=== PATIENT | male | born 1955 | race Caucasian/White ===

== ENCOUNTER 2020-07-31 11:13 | Emergency (ER) | payer BC, OTHER ==
[2020-07-31] MEDS ORDERED: Albuterol 200 PUFF (6.7GM INHALER) ONE (12:47)
[2020-07-31] MEDS ORDERED: Dexamethasone 10 MG/ML VIAL ONE (12:47)
[2020-07-31 13:33] LABS: #Lymphocytes 0.6 thou/uL (1.20-3.40); #Monocytes 0.6 thou/uL (0.11-0.59); #Neutrophils 6.9 thou/uL (1.40-6.50); %Basophils 0.4 % (0.0-1.0); %Eosinophils 0.2 % (0.0-10.0); %Lymphocytes 7.9 % (21.0-51.0); %Neutrophils 84.6 % (42.0-75.0); Hemoglobin 16.5 g/dL (14.0-18.0); Mean Corpuscular HGB CONC 34.1 g/dL (32.0-36.0); Mean Corpuscular Hemoglobin 30.6 pg (27.0-31.0); Mean Corpuscular Volume 89.8 fL (78.0-98.0); Mean Platelet Volume 8.8 fL (7.4-10.4); Platelet Count 130 thou/uL (130-400); RBC Distribution Width 11.6 % (11.5-14.5); Red Blood Cell (RBC) Count 5.39 mill/uL (4.70-6.10); White Blood Cell (WBC) Count 8.2 thou/uL (4.8-10.8)
--- NOTE | 2020-07-31 13:45 | RAD ---
XR Chest 1 View Portable HISTORY: Cough COMPARISON: None FINDINGS: The heart size is normal. The lungs are well expanded without focal areas of consolidation, pneumothorax or pleural effusions. There is suggestion of mild hazy peripheral opacities. Possibility of viral pneumonia should be consi dered
[2020-07-31 13:48] LABS: ALT (SGPT) 35 U/L (8-55); AST (SGOT) 32 U/L (5-34); Albumin 3.8 g/dL (3.4-4.8); Alkaline Phosphatase 46 U/L (40-110); Anion Gap 19 mmol/L (10-20); BUN (Urea Nitrogen) 36 mg/dL (8.4-25.7); Bilirubin, Total 0.6 mg/dL (0.2-1.2); Calc. Creatinine Clearance 0 mL/min (70-130); Calcium 8.7 mg/dL (7.8-10.44); Carbon Dioxide 21 mmol/L (23-31); Chloride 96 mmol/L (98-107); Globulin 3.3 g/dL (2.4-3.5); Glucose 314 mg/dL (80-115); Potassium 3.8 mmol/L (3.5-5.1); Protein, Total 7.1 g/dL (5.8-8.1); Sodium 132 mmol/L (136-145)
[2020-07-31 21:33] LABS: SARS-CoV-2 MS2 Positive; SARS-CoV-2 N Gene Positive; SARS-CoV-2 S Gene Positive; SARS-CoV-2 by NAA DETECTED (NotDetected); SARS-CoV-2 orf1ab Positive
== END 2020-07-31 14:29 | disposition home or self-care (01) ==
LOC: ERS 11:13
DX: U07.1 COVID-19 (principal); J12.89 Other viral pneumonia; Z79.82 Long term (current) use of aspirin
CPT/HCPCS: 71045; 80053; 85025; 87635; 87804; 94664; 96374; J1100; U0003

== ENCOUNTER 2020-09-02 01:19 | Inpatient (IN) | payer BC ==
[2020-09-02 04:35] VITALS: BMI 25.8
[2020-09-02] MEDS ORDERED: Acetaminophen 325 MG TAB PO PRN (04:43)
--- NOTE | 2020-09-02 04:47 | PDOC.HHP ---
Hospitalist HPI - History of Present Illness Shortness of breath History of Present Illness: This is a 65-year-old male patient with a history of atrial flutter status post ablation, diabetes mellitus who was transferred from [facility] after having been diagnosed with pulmonary embolism post Covid infection and lack of available beds. 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 He was diagnosed with Covid on 07/31/2020 after he flew in from [place]. He was admitted at [facility] and discharged on 08/08/2020. He seemed to be doing generally well until about 5-6 days ago when he noted swelling of his right ankle which quickly progressed to involve most of his right leg. He presented to urgent care where the scan noted he had a DVT. He was started on Xarelto. Apparently has been on Xarelto for the past 5 days without missing a dose. Yesterday however he started noticing worsening shortness of breath as a result he went back to [facility] and [place] where CT scan of his chest picked up pulmonary embolism. He also notes having fevers and sweatiness for the past couple of days. At [place] ED was saturating about 84% on room air with improvement to above 95 on 2 L nasal cannula. Blood pressure was 148/63, temperature 89.9, respiratory rate 18 and pulse 98. At [facility] his Xarelto was discontinued and he was started on therapeutic Lovenox. His other labs showed generally unremarkable CBC, BMP showed a mild hyponatremia of 133 and bicarb of 18. Glucose was 516, ferritin 533 LDH 519 CRP 5.26. Chest x-ray was concerning for possible acute infiltrates bilaterally in the lower segments. Unclear whether these are chronic lung changes. For his elevated glucose he was given insulin. He was not in DKA. He was also covered on vancomycin and Levaquin for possible hospital-acquired pneumonia Due to lack of beds he was transferred here for further management. Hospitalist ROS - Review of Systems Constitutional: reports: fever, sweats, malaise. denies: weakness Respiratory: reports: cough, shortness of breath, hemoptysis, SOB with excertion , pleuritic pain Cardiovascular: reports: chest pain, palpitations, orthopnea, paroxysmal noc. dyspnea Gastrointestinal: denies: nausea, vomiting, abdominal pain Genitourinary: denies: dysuria, incontinence Neurological: denies: weakness, numbness, incoordination, change in speech All other systems reviewed; all pertinent +/- noted in HPI/Subj - Medication Medications: Medications: Can refer to initial history Allergies: No known drug allergies. Hospitalist History - Past Medical History Endocrine: reports: Diabetes Other Medical History: Atrial flutter - Past Surgical History Past Surgical History: reports: Total Knee Replacement Other Surgical History: Atrial flutter ablation - Social History Smoking Status: Former smoker Alcohol: reports: None Drugs: reports: none Living Situation: Alone Activity level: independent ambulation - Exam General Appearance: awake alert Eye: PERRL, anicteric sclera ENT: normocephalic atraumatic Neck: supple, symmetric, no JVD Respiratory - other findings: Air entry adequate bilaterally, no rhonchi or wheeze Gastrointestinal: soft, non-tender, non-distended, normal bowel sounds Extremities: no cyanosis, no clubbing, 1+ LE edema (Right leg) Neurological: cranial nerve grossly intact, no focal deficits Psychiatric: normal affect, normal behavior, A&O x 3 Hospitalist Results - Labs Result Diagrams: 09/03/20 05:59 09/03/20 05:59 Hospitalist H&P A/P - Plan Plan: 65-year-old male patient with a history of atrial flutter status post ablation, diabetes mellitus who was diagnosed with Covid on 07/31/2020 is transferred from [place] today with right lower limb DVT with pulmonary embolism apparently having failed Xarelto therapy. Acute hypoxic respiratory failure In the setting of pulmonary embolism/previous Covid infection/chronic lung changes and possible pneumonia Oxygen therapy as needed DVT/PE Patient is back on Xarelto now Lovenox This in the setting of prior Covid infection We will check echocardiogram in a.m. Pulmonology consult for plan for long-term anticoagulation. Possible pneumonia Received Vanco and Levaquin cefepime This is unlikely pneumonia however will continue antibiotics for now on Levaquin Would appreciate pulmonology input. Hyponatremia Mild Monitor BMP COVID-19 infection Initial diagnosis 07/31/2020 Patient stool positive likely residual or any Consider ID consult on treatment decision VT prophylaxistherapeutic Lovenox CODE STATUSfull code
[2020-09-02] MEDS ORDERED: Dextrose 50% Abboject 50 ML SYRINGE SLOW IVP PRN (05:18)
[2020-09-02] MEDS ORDERED: Dextrose 5% in Water 1,000 ML IV PRN (05:18)
[2020-09-02] MEDS: HumaLOG 300 UNITS/3 ML VIAL SC PRN ×4 (06:07→20:26)
[2020-09-02] MEDS ORDERED: Enoxaparin Sodium 100 MG/ML SYRINGE SC SCH (07:00)
[2020-09-02] MEDS: Enoxaparin Sodium 120 MG/0.8 ML SYRINGE SC SCH ×2 (08:32→20:25)
--- NOTE | 2020-09-02 10:30 | CON ---
DATE OF CONSULTATION: 09/02/2020 CONSULTING PHYSICIAN: Dr. Rosenberg from the [facility]ist [facility]. REASON FOR CONSULTATION: Pulmonary embolism. HISTORY OF PRESENT ILLNESS: This is a 65-year-old male, who was diagnosed with COVID on July 31. He was briefly hospitalized. He went home on steroids, antibiotics, but did not require oxygen at home. Five days ago, he was seen at the emergency room, diagnosed with a right hand DVT. He was placed on Xarelto. Last night, he began having fevers and came back to the ER. He had a CT of the chest performed showing bilateral pulmonary emboli. Of note, he did not have a CT performed during his earlier evaluation for the DVT. It should be noted, he was taking Xarelto as an outpatient. He was on the starter pack, which is 15 mg b.i.d. I believe. He says he did not start this till Monday. 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 PAST MEDICAL HISTORY: 1. COVID-19 pneumonia. 2. Diabetes mellitus. PAST SURGICAL HISTORY: Knee replacement and atrial flutter ablation. SOCIAL HISTORY: Quit smoking about 20 years ago. Does not consume alcohol. Does not use illicit drugs. REVIEW OF SYSTEMS: Remarkable for shortness of breath, right leg swelling. Otherwise, negative. MEDICATIONS: Prior to admission; 1. Xarelto. 2. Janumet. 3. Losartan/hydrochlorothiazide. 4. Atorvastatin. PHYSICAL EXAMINATION: VITAL SIGNS: Temperature 98.5, pulse 85, respirations 20, O2 saturation 100% on 3 L, and blood pressure 136/88. GENERAL: He is awake and alert, in no acute distress. HEENT: Unremarkable. NEC: No adenopathy or JVD. LUNGS: He has inspiratory crackles in both bases. CARDIAC: S1 and S2. Regular without audible murmur. ABDOMEN: Soft and nontender to palpation. EXTREMITIES: No clubbing, cyanosis, or edema. IMAGING DATA: CT was reviewed, shows bilateral pulmonary emboli, worse in the left upper lobe and left lower lobe. He also has post-COVID changes, most notably in both lower lobes. LABORATORY DATA: White blood cell count 8.8, hematocrit 44, and platelet count 152. D-dimer 3.6. Sodium 133, potassium 4.3, chloride 100, CO2 of 18, BUN 17, creatinine 1.2, and glucose 447. ASSESSMENT: 1. Deep vein thrombosis. 2. Pulmonary embolism. 3. Post-COVID pneumonia. 4. Acute hypoxic respiratory failure. DISCUSSION: The patient has a post COVID, DVT, and pulmonary embolism. I would not necessarily view these as separate events as he probably had pulmonary embolism on Monday. Therefore, I would not necessarily view this as treatment failure. RECOMMENDATIONS: He is currently on enoxaparin. I would probably do that for 3 days and then switch him to Eliquis 10 mg b.i.d. for 7 days, then 5 mg b.i.d. thereafter and do this for 6 months. The fever may be from pulmonary infarction or could be a secondary infection after COVID. I would treat him with 7 days of Levaquin and then stop that. Thank you for the referral. Job ID: [id number]
[2020-09-02] MEDS ORDERED: HYDROcodone/Acetaminophen 5/325 mg Tablet PO PRN (17:37)
--- NOTE | 2020-09-02 17:40 | PDOC.HOSPP ---
- Subjective Encounter Date: 09/02/20 Encounter Time: 17:38 Subjective: Mr. Atkinson was seen today in follow-up of PE and recent COVID infection. He notes continued pain in his chest when breathing. He also notes some dyspnea. - Objective Vital Signs & Weight: Vital Signs (12 hours) Temp Pulse Resp BP Pulse Ox 09/02/20 16:00 74 130/91 H 09/02/20 12:06 97.6 F 76 20 143/82 H 100 09/02/20 12:00 20 96 09/02/20 09:08 98.5 F 75 20 136/88 100 09/02/20 08:43 98.5 F 75 20 Weight Weight 235 lb 7.259 oz I&O: 09/01/20 09/02/20 09/03/20 06:59 06:59 06:59 Intake Total 360 Output Total 1500 Balance -1140 Additional Labs: Accuchecks 09/02/20 09/02/20 09/02/20 16:26 11:25 05:49 POC Glucose 426 H 420 H 447 H Hospitalist ROS - Medication Medications: Active Medications Generic Name Dose Route Start Last Admin Trade Name Freq PRN Reason Stop Dose Admin Acetaminophen 650 mg 09/02/20 04:43 09/02/20 10:13 Acetaminophen 325 Mg Tab PO 650 mg Q4H PRN Administration Headache/Fever/Mild Pain (1-3) Enoxaparin Sodium 110 mg 09/02/20 09:00 09/02/20 08:32 Enoxaparin Sodium 120 Mg/0.8 Ml Syringe SC 110 mg 0900,2100 KELSEY Administration Levofloxacin 750 mg/ Device 150 mls @ 100 mls/hr 09/02/20 07:00 09/02/20 08:32 IVPB 150 mls Q24HR KELSEY Administration Insulin Human Lispro 0 units 09/02/20 05:18 09/02/20 16:39 Humalog 300 Units/3 Ml Vial SC 6 unit .MILD SLIDING SCALE PRN Administration Mild Correctional Scale Sodium Chloride 10 ml 09/02/20 09:00 09/02/20 08:33 Flush - Normal Saline 10 Ml Syringe IVF 10 ml Q12HR KELSEY Administration - Exam Eye: PERRL, anicteric sclera ENT: normocephalic atraumatic Heart: RRR, no murmur, no gallops, no rubs, normal peripheral pulses Respiratory: no wheezes, no ronchi, rales (at the right base) Gastrointestinal: soft, non-tender, non-distended, normal bowel sounds, no palpable masses, no hepatomegaly Extremities: 1+ LE edema (about the right ankle and chronic venous stasis changes) Hosp A/P (1) Pulmonary embolus Code(s): I26.99 - OTHER PULMONARY EMBOLISM WITHOUT ACUTE COR PULMONALE Status: Acute (2) DVT (deep venous thrombosis) Code(s): I82.409 - ACUTE EMBOLISM AND THOMBOS UNSP DEEP VN UNSP LOWER EXTREMITY Status: Acute (3) COPD (chronic obstructive pulmonary disease) Status: Chronic Qualifiers: COPD type: chronic bronchitis Chronic bronchitis type: mucopurulent Qualified Code(s): J41.1 - Mucopurulent chronic bronchitis (4) Hypertension Code(s): I10 - ESSENTIAL (PRIMARY) HYPERTENSION Status: Chronic (5) Type 2 diabetes mellitus Status: Chronic Qualifiers: Diabetes mellitus complication status: without complication - Plan * Pulmonary Embolus- Pulmonary Consult appreciated- Will continue with Lovenox for the next 3 days, then transition to Eliquis * DVT- as above * COPD- stable- have Duonebs available * Recent Covid pneumonia- will continue isolation until 21 days post test/symptoms * DM- will hold Janumet ( given the recent CTA) and will start on Lantus in the interim and continue SSI * HTN- re-start Lisinopril * Hyperlipidemia- re-start Lipitor
[2020-09-02] MEDS ORDERED: Albuterol 200 PUFF (6.7GM INHALER) INH PRN (17:52)
[2020-09-02] MEDS: HYDROcodone/Acetaminophen 10/325 mg Tablet PO PRN (18:33)
[2020-09-02] MEDS: Insulin Glargine 20 UNITS in Pre-Filled Syringe 1 EACH SC SCH (20:25)
[2020-09-02] MEDS: Morphine 2 MG/ML VIAL SLOW IVP PRN (20:31)
[2020-09-02] MEDS ORDERED: traZODone HCl 50 MG TAB PO SCH (22:00)
[2020-09-03] MEDS: HumaLOG 300 UNITS/3 ML VIAL SC PRN ×4 (06:04→20:13)
[2020-09-03 06:30] LABS: #Eosinphils 0.2 thou/uL (0.0-0.7); #Monocytes 0.6 thou/uL (0.11-0.59); %Basophils 0.4 % (0.0-1.0); %Eosinophils 3.1 % (0.0-10.0); %Lymphocytes 25.4 % (21.0-51.0); %Monocytes 8.2 % (0.0-10.0); Mean Corpuscular HGB CONC 31.5 g/dL (32.0-36.0); Mean Corpuscular Hemoglobin 29.1 pg (27.0-31.0); Mean Corpuscular Volume 92.3 fL (78.0-98.0); Mean Platelet Volume 7.4 fL (7.4-10.4); Platelet Count 174 thou/uL (130-400); RBC Distribution Width 12.9 % (11.5-14.5); White Blood Cell (WBC) Count 7.9 thou/uL (4.8-10.8)
[2020-09-03 06:41] LABS: Anion Gap 13 mmol/L (10-20); BUN (Urea Nitrogen) 14 mg/dL (8.4-25.7); Calc. Creatinine Clearance 144 mL/min (70-130); Calcium 8.5 mg/dL (7.8-10.44); Carbon Dioxide 25 mmol/L (23-31); Chloride 99 mmol/L (98-107); Glucose 293 mg/dL (80-115); Sodium 133 mmol/L (136-145)
[2020-09-03] MEDS: Enoxaparin Sodium 120 MG/0.8 ML SYRINGE SC SCH ×2 (07:43→20:11)
--- NOTE | 2020-09-03 14:33 | PDOC.HOSPP ---
- Subjective Encounter Date: 09/03/20 Encounter Time: 08:30 Subjective: Patient seen for follow-up regarding acute hypoxic respiratory failure. Denies chest pain. Did not sleep well. - Objective Vital Signs & Weight: Vital Signs (12 hours) Temp Pulse Resp BP Pulse Ox 09/03/20 13:36 68 20 106/71 97 09/03/20 13:13 97.7 F 68 20 106/71 97 09/03/20 08:32 98.4 F 69 20 125/82 100 09/03/20 06:14 97.5 F L 67 18 116/79 99 Weight Weight 235 lb 7.259 oz I&O: 09/02/20 09/03/20 09/04/20 06:59 06:59 06:59 Intake Total 360 Output Total 1500 Balance -1140 Result Diagrams: 09/03/20 05:59 09/03/20 05:59 Additional Labs: Accuchecks 09/03/20 09/03/20 09/02/20 12:18 05:40 20:06 POC Glucose 283 H 291 H 407 H 09/02/20 16:26 POC Glucose 426 H I reviewed patient's labs and [facility] Hospitalist ROS - Review of Systems Respiratory: reports: cough, SOB with excertion, sputum. denies: dry, shortness of breath, hemoptysis, pleuritic pain, wheezing Cardiovascular: denies: chest pain, palpitations, orthopnea, paroxysmal noc. dyspnea, edema, light headedness - Medication Medications: Active Medications Generic Name Dose Route Start Last Admin Trade Name Freq PRN Reason Stop Dose Admin Acetaminophen 650 mg 09/02/20 04:43 09/02/20 10:13 Acetaminophen 325 Mg Tab PO 650 mg Q4H PRN Administration Headache/Fever/Mild Pain (1-3) Hydrocodone Bitart/Acetaminophen 1 tab 09/02/20 17:37 09/02/20 18:33 Hydrocodone/Acetaminophen 10/325 Mg Tablet PO 1 tab Q4H PRN Administration Severe Pain (7-10) Enoxaparin Sodium 110 mg 09/02/20 09:00 09/03/20 07:43 Enoxaparin Sodium 120 Mg/0.8 Ml Syringe SC 110 mg 0900,2100 KELSEY Administration HCTZ/Losartan Potassium 1 tab 09/03/20 09:00 09/03/20 07:43 Losartan/Hydrochlorothiazide 50 Mg/12.5 Mg Tablet PO 1 tab DAILY KELSEY Administration Levofloxacin 750 mg/ Device 150 mls @ 100 mls/hr 09/02/20 07:00 09/03/20 06:06 IVPB 150 mls Q24HR KELSEY Administration Insulin Glargine 20 units/ 0.2 mls @ 0 mls/hr 09/02/20 21:00 09/02/20 20:25 Miscellaneous Medication SC 0.2 mls HS KELSEY Administration Insulin Human Lispro 0 units 09/02/20 05:18 09/03/20 12:31 Humalog 300 Units/3 Ml Vial SC 4 unit .MILD SLIDING SCALE PRN Administration Mild Correctional Scale Morphine Sulfate 2 mg 09/02/20 17:38 09/02/20 20:31 Morphine 2 Mg/Ml Vial SLOW IVP 2 mg Q4H PRN Administration Severe Pain (7-10) Sodium Chloride 10 ml 09/02/20 09:00 09/03/20 07:43 Flush - Normal Saline 10 Ml Syringe IVF 10 ml Q12HR KELSEY Administration - Exam General Appearance: awake alert Eye: anicteric sclera ENT: normocephalic atraumatic Neck: supple Heart: RRR Respiratory: CTAB Gastrointestinal: soft, non-tender Skin: no rashes Psychiatric: normal affect, normal behavior Hosp A/P - Plan Hosp A/P (1) acute hypoxic respiratory failure Status: Acute (2) Pulmonary embolus Code(s): I26.99 - OTHER PULMONARY EMBOLISM WITHOUT ACUTE COR PULMONALE Status: Acute (3) DVT (deep venous thrombosis) Code(s): I82.409 - ACUTE EMBOLISM AND THOMBOS UNSP DEEP VN UNSP LOWER EXTREMITY Status: Acute (4) COPD (chronic obstructive pulmonary disease) Status: Chronic Qualifiers: COPD type: chronic bronchitis Chronic bronchitis type: mucopurulent Qualified Code(s): J41.1 - Mucopurulent chronic bronchitis (5) Hypertension Code(s): I10 - ESSENTIAL (PRIMARY) HYPERTENSION Status: Chronic (6) Type 2 diabetes mellitus Status: Chronic Qualifiers: Diabetes mellitus complication status: without complication - Plan * Continue Lovenox for the next 2 days, then transition to Eliquis. * DVT- as above * COPD- stable * Recent Covid pneumonia- will continue isolation until 21 days post test/symp toms * DM-continue Accu-Cheks and insulin sliding scale * HTN- re-start Lisinopril * Hyperlipidemia- re-start Lipitor * As needed Ambien for insomnia
[2020-09-03] MEDS: Morphine 2 MG/ML VIAL SLOW IVP PRN (16:00)
[2020-09-03] MEDS: Atorvastatin Calcium 10 MG TAB PO SCH (20:12)
[2020-09-03] MEDS: Insulin Glargine 20 UNITS in Pre-Filled Syringe 1 EACH SC SCH (20:12)
[2020-09-03] MEDS: Zolpidem Tartrate 5 MG TAB PO PRN (20:12)
[2020-09-04] MEDS: HumaLOG 300 UNITS/3 ML VIAL SC PRN ×4 (06:13→20:03)
[2020-09-04] MEDS: Enoxaparin Sodium 120 MG/0.8 ML SYRINGE SC SCH ×2 (08:04→20:03)
[2020-09-04] MEDS: Morphine 2 MG/ML VIAL SLOW IVP PRN (14:51)
--- NOTE | 2020-09-04 16:42 | PDOC.HOSPP ---
- Subjective Encounter Date: 09/04/20 Encounter Time: 09:30 Subjective: Patient seen for follow-up regarding acute hypoxic respiratory failure. Reports occasional pleuritic chest pain. - Objective Vital Signs & Weight: Vital Signs (12 hours) Temp Pulse Resp BP Pulse Ox 09/04/20 15:15 98.0 F 70 20 106/64 97 09/04/20 08:04 68 18 128/72 97 09/04/20 08:00 98.0 F 67 18 107/75 97 Weight Weight 235 lb 7.259 oz I&O: 09/03/20 09/04/20 09/05/20 06:59 06:59 06:59 Intake Total 360 Output Total 1500 Balance -1140 Result Diagrams: 09/03/20 05:59 09/03/20 05:59 Additional Labs: Accuchecks 09/04/20 09/04/20 09/04/20 16:33 11:22 05:27 POC Glucose 237 H 177 H 229 H 09/03/20 20:06 POC Glucose 364 H Labs and MAR reviewed by al Hospitalist ROS - Review of Systems Cardiovascular: reports: chest pain. denies: palpitations, orthopnea, paroxysmal noc. dyspnea, edema, light headedness Gastrointestinal: denies: nausea, vomiting, abdominal pain, diarrhea, constipation, melena, hematochezia - Medication Medications: Active Medications Generic Name Dose Route Start Last Admin Trade Name Freq PRN Reason Stop Dose Admin Acetaminophen 650 mg 09/02/20 04:43 09/02/20 10:13 Acetaminophen 325 Mg Tab PO 650 mg Q4H PRN Administration Headache/Fever/Mild Pain (1-3) Hydrocodone Bitart/Acetaminophen 1 tab 09/02/20 17:37 09/02/20 18:33 Hydrocodone/Acetaminophen 10/325 Mg Tablet PO 1 tab Q4H PRN Administration Severe Pain (7-10) Atorvastatin Calcium 10 mg 09/03/20 21:00 09/03/20 20:12 Atorvastatin Calcium 10 Mg Tab PO 10 mg HS KELSEY Administration Enoxaparin Sodium 110 mg 09/02/20 09:00 09/04/20 08:04 Enoxaparin Sodium 120 Mg/0.8 Ml Syringe SC 110 mg 0900,2100 KELSEY Administration HCTZ/Losartan Potassium 1 tab 09/03/20 09:00 09/04/20 08:04 Losartan/Hydrochlorothiazide 50 Mg/12.5 Mg Tablet PO 1 tab DAILY KELSEY Administration Levofloxacin 750 mg/ Device 150 mls @ 100 mls/hr 09/02/20 07:00 09/04/20 06:12 IVPB 150 mls Q24HR KELSEY Administration Insulin Glargine 20 units/ 0.2 mls @ 0 mls/hr 09/02/20 21:00 09/03/20 20:12 Miscellaneous Medication SC 0.2 mls HS KELSEY Administration Insulin Human Lispro 0 units 09/02/20 05:18 09/04/20 11:35 Humalog 300 Units/3 Ml Vial SC 2 unit .MILD SLIDING SCALE PRN Administration Mild Correctional Scale Morphine Sulfate 2 mg 09/02/20 17:38 09/04/20 14:51 Morphine 2 Mg/Ml Vial SLOW IVP 2 mg Q4H PRN Administration Severe Pain (7-10) Sodium Chloride 10 ml 09/02/20 09:00 09/04/20 08:05 Flush - Normal Saline 10 Ml Syringe IVF 10 ml Q12HR KELSEY Administration Zolpidem Tartrate 5 mg 09/03/20 09:51 09/03/20 20:12 Zolpidem Tartrate 5 Mg Tab PO 5 mg HSPRN PRN Administration Insomnia - Exam General Appearance: awake alert Eye: anicteric sclera ENT: no oropharyngeal lesions Neck: supple Heart: RRR Respiratory: CTAB Gastrointestinal: soft, non-tender Skin: no rashes Psychiatric: normal affect, normal behavior Hosp A/P - Plan Hosp A/P (1) acute hypoxic respiratory failure Status: Acute (2) Pulmonary embolus Code(s): I26.99 - OTHER PULMONARY EMBOLISM WITHOUT ACUTE COR PULMONALE Status: Acute (3) DVT (deep venous thrombosis) Code(s): I82.409 - ACUTE EMBOLISM AND THOMBOS UNSP DEEP VN UNSP LOWER EXTREMITY Status: Acute (4) COPD (chronic obstructive pulmonary disease) Status: Chronic Qualifiers: COPD type: chronic bronchitis Chronic bronchitis type: mucopurulent Qualified Code(s): J41.1 - Mucopurulent chronic bronchitis (5) Hypertension Code(s): I10 - ESSENTIAL (PRIMARY) HYPERTENSION Status: Chronic (6) Type 2 diabetes mellitus Status: Chronic Qualifiers: Diabetes mellitus complication status: without complication - Plan * Continue Lovenox for the next day, then transition to Eliquis. * DVT- as above * COPD- stable * Recent Covid pneumonia * DM-continue Accu-Cheks and insulin sliding scale * HTN-controlled and stable * Hyperlipidemia-continue Lipitor * Continue Ambien for insomnia
[2020-09-04] MEDS: Atorvastatin Calcium 10 MG TAB PO SCH (20:02)
[2020-09-04] MEDS: Zolpidem Tartrate 5 MG TAB PO PRN (20:02)
[2020-09-04] MEDS: Insulin Glargine 20 UNITS in Pre-Filled Syringe 1 EACH SC SCH (20:03)
[2020-09-05] MEDS: HumaLOG 300 UNITS/3 ML VIAL SC PRN ×4 (06:47→20:48)
[2020-09-05] MEDS: Enoxaparin Sodium 120 MG/0.8 ML SYRINGE SC SCH (08:49)
[2020-09-05] MEDS: Morphine 2 MG/ML VIAL SLOW IVP PRN (14:31)
--- NOTE | 2020-09-05 18:06 | PDOC.HOSPP ---
- Subjective Encounter Date: 09/05/20 Encounter Time: 18:05 Subjective: Seen for follow-up for hypoxic respiratory failure. Complains of cough - Objective Vital Signs & Weight: Vital Signs (12 hours) Temp Pulse Resp BP 09/05/20 16:00 98.4 F 09/05/20 08:00 98.4 F 74 20 108/67 Weight Weight 235 lb 7.259 oz I&O: 09/04/20 09/05/20 09/06/20 06:59 06:59 06:59 Output Total 800 Balance -800 Result Diagrams: 09/03/20 05:59 09/03/20 05:59 Additional Labs: Accuchecks 09/05/20 09/05/20 09/05/20 16:29 11:47 04:25 POC Glucose 347 H 207 H 225 H 09/04/20 19:18 POC Glucose 251 H I reviewed patient's labs and MAR Hospitalist ROS - Review of Systems Respiratory: reports: cough, dry Gastrointestinal: denies: nausea, vomiting, abdominal pain, diarrhea, constipa tion, melena, hematochezia Genitourinary: denies: dysuria, frequency, incontinence, hematuria, retention - Medication Medications: Active Medications Generic Name Dose Route Start Last Admin Trade Name Freq PRN Reason Stop Dose Admin Acetaminophen 650 mg 09/02/20 04:43 09/02/20 10:13 Acetaminophen 325 Mg Tab PO 650 mg Q4H PRN Administration Headache/Fever/Mild Pain (1-3) Hydrocodone Bitart/Acetaminophen 1 tab 09/02/20 17:37 09/02/20 18:33 Hydrocodone/Acetaminophen 10/325 Mg Tablet PO 1 tab Q4H PRN Administration Severe Pain (7-10) Atorvastatin Calcium 10 mg 09/03/20 21:00 09/04/20 20:02 Atorvastatin Calcium 10 Mg Tab PO 10 mg HS KELSEY Administration Enoxaparin Sodium 110 mg 09/02/20 09:00 09/05/20 08:49 Enoxaparin Sodium 120 Mg/0.8 Ml Syringe SC 110 mg 0900,2100 KELSEY Administration HCTZ/Losartan Potassium 1 tab 09/03/20 09:00 09/05/20 08:49 Losartan/Hydrochlorothiazide 50 Mg/12.5 Mg Tablet PO 1 tab DAILY KELSEY Administration Levofloxacin 750 mg/ Device 150 mls @ 100 mls/hr 09/02/20 07:00 09/05/20 06:48 IVPB 150 mls Q24HR KELSEY Administration Insulin Glargine 20 units/ 0.2 mls @ 0 mls/hr 09/02/20 21:00 09/04/20 20:03 Miscellaneous Medication SC 0.2 mls HS KELSEY Administration Insulin Human Lispro 0 units 09/02/20 05:18 09/05/20 17:13 Humalog 300 Units/3 Ml Vial SC 5 unit .MILD SLIDING SCALE PRN Administration Mild Correctional Scale Morphine Sulfate 2 mg 09/02/20 17:38 09/05/20 14:31 Morphine 2 Mg/Ml Vial SLOW IVP 2 mg Q4H PRN Administration Severe Pain (7-10) Sodium Chloride 10 ml 09/02/20 09:00 09/05/20 08:50 Flush - Normal Saline 10 Ml Syringe IVF 10 ml Q12HR KELSEY Administration Zolpidem Tartrate 5 mg 09/03/20 09:51 09/04/20 20:02 Zolpidem Tartrate 5 Mg Tab PO 5 mg HSPRN PRN Administration Insomnia - Exam General Appearance: awake alert Eye: anicteric sclera ENT: moist mucosa Neck: supple Heart: RRR Respiratory: CTAB Gastrointestinal: soft, non-tender Skin: no rashes Psychiatric: normal affect, normal behavior Hosp A/P - Plan Hosp A/P (1) acute hypoxic respiratory failure Status: Acute (2) Pulmonary embolus Code(s): I26.99 - OTHER PULMONARY EMBOLISM WITHOUT ACUTE COR PULMONALE Status: Acute (3) DVT (deep venous thrombosis) Code(s): I82.409 - ACUTE EMBOLISM AND THOMBOS UNSP DEEP VN UNSP LOWER EXTREMITY Status: Acute (4) COPD (chronic obstructive pulmonary disease) Status: Chronic Qualifiers: COPD type: chronic bronchitis Chronic bronchitis type: mucopurulent Qualified Code(s): J41.1 - Mucopurulent chronic bronchitis (5) Hypertension Code(s): I10 - ESSENTIAL (PRIMARY) HYPERTENSION Status: Chronic (6) Type 2 diabetes mellitus Status: Chronic Qualifiers: Diabetes mellitus complication status: without complication - Plan * Transition to Eliquis * DVT- as above * COPD- stable * DM-blood sugars are high, start glyburide and resume Janumet. * HTN-controlled and stable * Hyperlipidemia-continue Lipitor * Patient is on Ambien for insomnia
[2020-09-05] MEDS: Alogliptin 25 MG TAB PO SCH (20:31)
[2020-09-05] MEDS: Zolpidem Tartrate 5 MG TAB PO PRN (20:31)
[2020-09-05] MEDS: Apixaban 5 MG TAB PO SCH (20:32)
[2020-09-05] MEDS: metFORMIN 500 MG TAB PO SCH (20:33)
[2020-09-05] MEDS: Insulin Glargine 20 UNITS in Pre-Filled Syringe 1 EACH SC SCH (20:33)
[2020-09-05] MEDS: Atorvastatin Calcium 10 MG TAB PO SCH (20:36)
[2020-09-06] MEDS: HumaLOG 300 UNITS/3 ML VIAL SC PRN (05:11)
[2020-09-06] MEDS: metFORMIN 500 MG TAB PO SCH ×2 (08:33→20:49)
[2020-09-06] MEDS: Apixaban 5 MG TAB PO SCH ×2 (08:34→20:49)
[2020-09-06] MEDS: Alogliptin 25 MG TAB PO SCH ×2 (08:34→20:49)
[2020-09-06] MEDS: glyBURIDE 5 MG TAB PO SCH (08:34)
[2020-09-06 10:09] LABS: #Eosinphils 0.2 thou/uL (0.0-0.7); #Lymphocytes 1.8 thou/uL (1.20-3.40); #Monocytes 0.8 thou/uL (0.11-0.59); #Neutrophils 4.2 thou/uL (1.40-6.50); %Basophils 0.1 % (0.0-1.0); %Eosinophils 2.4 % (0.0-10.0); %Lymphocytes 25.5 % (21.0-51.0); %Monocytes 11.3 % (0.0-10.0); %Neutrophils 60.6 % (42.0-75.0); Hemoglobin 14.7 g/dL (14.0-18.0); Mean Corpuscular HGB CONC 33.3 g/dL (32.0-36.0); Mean Corpuscular Hemoglobin 30.6 pg (27.0-31.0); Mean Corpuscular Volume 92.1 fL (78.0-98.0); Mean Platelet Volume 7.8 fL (7.4-10.4); Platelet Count 178 thou/uL (130-400); RBC Distribution Width 12.9 % (11.5-14.5); Red Blood Cell (RBC) Count 4.78 mill/uL (4.70-6.10); White Blood Cell (WBC) Count 6.9 thou/uL (4.8-10.8)
[2020-09-06] MEDS: traMADol HCl 50 MG TAB PO PRN ×2 (10:17→17:35)
[2020-09-06 10:37] LABS: Anion Gap 15 mmol/L (10-20); BUN (Urea Nitrogen) 16 mg/dL (8.4-25.7); Calc. Creatinine Clearance 120 mL/min (70-130); Calcium 8.8 mg/dL (7.8-10.44); Carbon Dioxide 24 mmol/L (23-31); Chloride 97 mmol/L (98-107); Glucose 317 mg/dL (80-115); Potassium 4.3 mmol/L (3.5-5.1); Sodium 132 mmol/L (136-145)
--- NOTE | 2020-09-06 12:36 | PDOC.DS.DS ---
Provider - Provider Date of Admission: 09/02/20 01:19 Date of Discharge: 09/06/20 Admitting Provider: Sanchez Rosenberg MD Consultations: Pulmonary (Dr. Kate) Primary Care Physician: Unknown Course - Hospital Course Hospital Course: Discharge diagnosis: 1. Acute hypoxic respiratory failure 2. Bilateral pulmonary emboli 3. Hyponatremia 4. Bilateral groundglass infiltrative changes in the lung bases on imaging Hospital course: Patient is a pleasant 65-year-old gentleman who was admitted to the hospital on September 02, 2020 for bilateral pulmonary embolism in the context of recent COVID-19 infection. He will also received antibiotics for groundglass infiltrates bilaterally. He was seen by pulmonary and critical care medicine service. He is requiring supplemental oxygen on the day of discharge, arrangements are being made for home oxygen. His blood sugars were high during this hospitalization. He was started on glyburide. He has been advised to check his blood sugars 3 times a day and shows readings to his primary care provider. He also had difficulty sleeping and he received prescription for 10 doses of Ambien. I also sent prescription for 15 doses of tramadol for pain management. Many thanks for allowing me to participate in your patient's care. Please feel free to contact me with any questions or concerns. Discharge destination: Home Total amount of time spent coordinating this discharge: 20 minutes - Labs Lab Results: 09/06/20 09:36 09/06/20 09:36 Abnormal Lab Results - Last 48 hrs 09/06/20 09:36: Sodium 132 L, Chloride 97 L 09/06/20 09:36: Monocytes % 11.3 H, Monocytes # 0.8 H - Physical Exam Vitals: Vital Signs (12 hours) Pulse Resp BP Pulse Ox 09/06/20 08:43 96 09/06/20 08:00 73 20 105/74 93 L Weight Weight 235 lb 7.259 oz Physical Exam: The patient was seen and examined on the day of discharge. Patient denies chest pain or shortness of breath. Vital signs are stable. S1 and S2 are heard. Lungs are clear to auscultation bilaterally. Plan - Discharge Medications Prescriptions: Albuterol Sulfate [Proventil Hfa] 2 puff INH [id number] PRN #1 aer PRN Reason: Sob &/Or Wheezing Zolpidem Tartrate [Ambien] 5 mg PO HSPRN PRN #10 tab PRN Reason: Insomnia glyBURIDE [Diabeta] 5 mg PO QAM-WM #30 tab Levofloxacin [Levaquin] 750 mg PO DAILY #5 tab traMADol HCl [Ultram] 50 mg PO Q6H PRN #15 tab PRN Reason: Pain Home Medications: Medication Instructions Recorded Confirmed Type sitaGLIPtin Phos/metFORMIN HCl 1 tablet PO BID 09/04/14 09/02/20 History [Janumet] Atorvastatin Calcium 10 mg PO DAILY 08/02/20 09/02/20 History Losartan/Hydrochlorothiazide 1 each PO DAILY 08/02/20 09/02/20 History [Losartan-Hctz 50-12.5 mg Tab] Albuterol Sulfate [Proventil Hfa] 2 puff INH [id number] PRN #1 aer 09/06/20 Rx Levofloxacin [Levaquin] 750 mg PO DAILY #5 tab 09/06/20 Rx Zolpidem Tartrate [Ambien] 5 mg PO HSPRN PRN #10 tab 09/06/20 Rx glyBURIDE [Diabeta] 5 mg PO QAM-WM #30 tab 09/06/20 Rx traMADol HCl [Ultram] 50 mg PO Q6H PRN #15 tab 09/06/20 Rx Allergies: No Known Allergies Allergy (Verified 08/02/20 20:48) - Discharge Instructions Discharge Instructions:: Check your blood sugars 3 times a day and shows readings to your primary care provider. - Follow up Plan Referrals: Unknown,Unknown [Primary Care Provider] - 3 Days Estevan Mclain MD [Active] - 3 Days Disposition: HOME Quality - Care Measures CORE MEASURES:: N/A
[2020-09-06] MEDS: HYDROcodone/Acetaminophen 10/325 mg Tablet PO PRN (14:49)
--- NOTE | 2020-09-06 16:11 | PDOC.HOSPP ---
- Subjective Encounter Date: 09/06/20 Encounter Time: 16:10 Subjective: Pt seen for followup re: acute resp failure with hypoxia. Feels better. - Objective Vital Signs & Weight: Vital Signs (12 hours) Pulse Resp BP Pulse Ox 09/06/20 12:00 97 09/06/20 08:43 96 09/06/20 08:00 73 20 105/74 93 L Weight Weight 235 lb 7.259 oz I&O: 09/05/20 09/06/20 09/07/20 06:59 06:59 06:59 Output Total 800 Balance -800 Result Diagrams: 09/06/20 09:36 09/06/20 09:36 Additional Labs: Accuchecks 09/06/20 09/06/20 09/05/20 11:36 04:31 19:32 POC Glucose 152 H 244 H 300 H 09/05/20 16:29 POC Glucose 347 H Reviewed labd and MARs. Hospitalist ROS - Review of Systems Respiratory: reports: cough, pleuritic pain Cardiovascular: denies: chest pain, palpitations, orthopnea, paroxysmal noc. dyspnea, edema, light headedness, other Gastrointestinal: denies: nausea, vomiting, abdominal pain, diarrhea, constipation, melena, hematochezia - Medication Medications: Active Medications Generic Name Dose Route Start Last Admin Trade Name Freq PRN Reason Stop Dose Admin Acetaminophen 650 mg 09/02/20 04:43 09/02/20 10:13 Acetaminophen 325 Mg Tab PO 650 mg Q4H PRN Administration Headache/Fever/Mild Pain (1-3) Hydrocodone Bitart/Acetaminophen 1 tab 09/02/20 17:37 09/06/20 14:49 Hydrocodone/Acetaminophen 10/325 Mg Tablet PO 1 tab Q4H PRN Administration Severe Pain (7-10) Alogliptin Benzoate 12.5 mg 09/05/20 21:00 09/06/20 08:34 Alogliptin 25 Mg Tab PO 12.5 mg BID KELSEY Administration Apixaban 10 mg 09/05/20 21:00 09/06/20 08:34 Apixaban 5 Mg Tab PO 10 mg BID KELSEY Administration Atorvastatin Calcium 10 mg 09/03/20 21:00 09/05/20 20:36 Atorvastatin Calcium 10 Mg Tab PO 10 mg HS KELSEY Administration Glyburide 5 mg 09/06/20 08:00 09/06/20 08:34 Glyburide 5 Mg Tab PO 5 mg QAM-WM KELSEY Administration HCTZ/Losartan Potassium 1 tab 09/03/20 09:00 09/06/20 08:33 Losartan/Hydrochlorothiazide 50 Mg/12.5 Mg Tablet PO 1 tab DAILY KELSEY Administration Levofloxacin 750 mg/ Device 150 mls @ 100 mls/hr 09/02/20 07:00 09/06/20 05:10 IVPB 150 mls Q24HR KESLEY Administration Insulin Glargine 20 units/ 0.2 mls @ 0 mls/hr 09/02/20 21:00 09/05/20 20:33 Miscellaneous Medication SC 0.2 mls HS KELSEY Administration Insulin Human Lispro 0 units 09/02/20 05:18 09/06/20 05:11 Humalog 300 Units/3 Ml Vial SC 3 unit .MILD SLIDING SCALE PRN Administration Mild Correctional Scale Metformin HCl 1,000 mg 09/05/20 21:00 09/06/20 08:33 Metformin 500 Mg Tab PO 1,000 mg BID KELSEY Administration Morphine Sulfate 2 mg 09/02/20 17:38 09/05/20 14:31 Morphine 2 Mg/Ml Vial SLOW IVP 2 mg Q4H PRN Administration Severe Pain (7-10) Sodium Chloride 10 ml 09/02/20 09:00 09/06/20 08:34 Flush - Normal Saline 10 Ml Syringe IVF 10 ml Q12HR KELSEY Administration Tramadol HCl 50 mg 09/05/20 18:09 09/06/20 10:17 Tramadol Hcl 50 Mg Tab PO 50 mg Q6H PRN Administration Pain Zolpidem Tartrate 5 mg 09/03/20 09:51 09/05/20 20:31 Zolpidem Tartrate 5 Mg Tab PO 5 mg HSPRN PRN Administration Insomnia - Exam General Appearance: awake alert Eye: anicteric sclera Heart: RRR Respiratory: CTAB Extremities: no clubbing Skin: no rashes Psychiatric: normal affect, normal behavior Hosp A/P - Plan Hosp A/P (1) acute hypoxic respiratory failure Status: Acute (2) Pulmonary embolus Code(s): I26.99 - OTHER PULMONARY EMBOLISM WITHOUT ACUTE COR PULMONALE Status: Acute (3) DVT (deep venous thrombosis) Code(s): I82.409 - ACUTE EMBOLISM AND THOMBOS UNSP DEEP VN UNSP LOWER EXTREMITY Status: Acute (4) COPD (chronic obstructive pulmonary disease) Status: Chronic Qualifiers: COPD type: chronic bronchitis Chronic bronchitis type: mucopurulent Qu alified Code(s): J41.1 - Mucopurulent chronic bronchitis (5) Hypertension Code(s): I10 - ESSENTIAL (PRIMARY) HYPERTENSION Status: Chronic (6) Type 2 diabetes mellitus Status: Chronic Qualifiers: Diabetes mellitus complication status: without complication - Plan * continue Eliquis * DVT- as above * COPD- stable * DM-continue Janumet and glyburide * HTN-controlled and stable * Hyperlipidemia-continue Lipitor * Patient is on Ambien for insomnia * Controlled need home oxygen. Likely home in 24 hours.
[2020-09-06] MEDS: Atorvastatin Calcium 10 MG TAB PO SCH (20:49)
[2020-09-06] MEDS: Insulin Glargine 20 UNITS in Pre-Filled Syringe 1 EACH SC SCH (20:49)
[2020-09-06] MEDS: Zolpidem Tartrate 5 MG TAB PO PRN (20:49)
[2020-09-07] MEDS: HumaLOG 300 UNITS/3 ML VIAL SC PRN (05:26)
[2020-09-07 07:35] LABS: Anion Gap 16 mmol/L (10-20); BUN (Urea Nitrogen) 16 mg/dL (8.4-25.7); Calc. Creatinine Clearance 122 mL/min (70-130); Calcium 8.7 mg/dL (7.8-10.44); Carbon Dioxide 25 mmol/L (23-31); Chloride 97 mmol/L (98-107); Glucose 212 mg/dL (80-115); Potassium 4.4 mmol/L (3.5-5.1); Sodium 134 mmol/L (136-145)
[2020-09-07 07:46] LABS: Hemoglobin 14.4 g/dL (14.0-18.0); Mean Corpuscular HGB CONC 33.5 g/dL (32.0-36.0); Mean Corpuscular Hemoglobin 31.3 pg (27.0-31.0); Mean Corpuscular Volume 93.6 fL (78.0-98.0); Mean Platelet Volume 7.9 fL (7.4-10.4); Platelet Count 166 thou/uL (130-400); RBC Distribution Width 12.7 % (11.5-14.5); Red Blood Cell (RBC) Count 4.61 mill/uL (4.70-6.10); White Blood Cell (WBC) Count 6.6 thou/uL (4.8-10.8)
[2020-09-07 07:47] VITALS: BP 101/67; TEMP 98.2
[2020-09-07 09:15] LABS: Band 2 % (5-11); Eosinophils 5 % (0-10); Lymphocytes 33 % (21-51); MDiff Complete? YES; Metamyelocyte 3 % (0-0); Monocytes 11 % (0-10); Myelocyte 1 % (0-0); Neutrophil 45 % (42-75); RBC Morphology Normal
[2020-09-07] MEDS: glyBURIDE 5 MG TAB PO SCH (09:46)
[2020-09-07] MEDS: Alogliptin 25 MG TAB PO SCH (09:46)
[2020-09-07] MEDS: metFORMIN 500 MG TAB PO SCH (09:46)
[2020-09-07] MEDS: Apixaban 5 MG TAB PO SCH (09:47)
--- NOTE | 2020-09-07 13:38 | PDOC.DS.DS ---
Provider - Provider Date of Admission: 09/02/20 01:19 Date of Discharge: 09/07/20 Admitting Provider: Sanchez Rosenberg MD Consultations: Pulmonary (Dr. Kate) Primary Care Physician: Unknown Course - Hospital Course Hospital Course: Discharge diagnosis: 1. Acute hypoxic respiratory failure 2. Bilateral pulmonary emboli 3. Hyponatremia 4. Bilateral groundglass infiltrative changes in the lung bases on imaging Hospital course: Patient is a pleasant 65-year-old gentleman who was admitted to the hospital on September 02, 2020 for bilateral pulmonary embolism in the context of recent COVID-19 infection. He will also received antibiotics for groundglass infiltrates bilaterally. He was seen by pulmonary and critical care medicine service. He is requiring supplemental oxygen on the day of discharge, arrangements are being made for home oxygen. His blood sugars were high during this hospitalization. He was started on glyburide. He has been advised to check his blood sugars 3 times a day and shows readings to his primary care provider. He also had difficulty sleeping and he received prescription for 10 doses of Ambien. I also sent prescription for 15 doses of tramadol for pain management. Many thanks for allowing me to participate in your patient's care. Please feel free to contact me with any questions or concerns. Discharge destination: Home Total amount of time spent coordinating this discharge: 15 minutes - Labs Lab Results: 09/07/20 06:28 09/07/20 06:28 Abnormal Lab Results - Last 48 hrs 09/06/20 09:36: Sodium 132 L, Chloride 97 L 09/06/20 09:36: Monocytes % 11.3 H, Monocytes # 0.8 H 09/07/20 06:28: Sodium 134 L, Chloride 97 L 09/07/20 06:28: RBC 4.61 L, MCH 31.3 H, Band Neuts % (Manual) 2 L, Monocytes % (Manual) 11 H, Myelocytes % 1 H - Physical Exam Vitals: Vital Signs (12 hours) Temp Pulse Resp BP Pulse Ox 09/07/20 08:00 92 L 09/07/20 07:39 98.2 F 74 20 101/67 92 L 09/07/20 05:00 98.1 F 76 18 104/64 93 L Weight Weight 235 lb 7.259 oz Physical Exam: The patient was seen and examined on the day of discharge. Patient denies chest pain or shortness of breath. Vital signs are stable. S1 and S2 are heard. Lungs are clear to auscultation bilaterally. Plan - Discharge Medications Prescriptions: Albuterol Sulfate [Proventil Hfa] 2 puff INH [id number] PRN #1 aer PRN Reason: Sob &/Or Wheezing Zolpidem Tartrate [Ambien] 5 mg PO HSPRN PRN #10 tab PRN Reason: Insomnia glyBURIDE [Diabeta] 5 mg PO QAM-WM #30 tab Levofloxacin [Levaquin] 750 mg PO DAILY #5 tab traMADol HCl [Ultram] 50 mg PO Q6H PRN #15 tab PRN Reason: Pain Home Medications: Medication Instructions Recorded Confirmed Type sitaGLIPtin Phos/metFORMIN HCl 1 tablet PO BID 09/04/14 09/02/20 History [Janumet] Atorvastatin Calcium 10 mg PO DAILY 08/02/20 09/02/20 History Losartan/Hydrochlorothiazide 1 each PO DAILY 08/02/20 09/02/20 History [Losartan-Hctz 50-12.5 mg Tab] Albuterol Sulfate [Proventil Hfa] 2 puff INH [id number] PRN #1 aer 09/06/20 Rx Levofloxacin [Levaquin] 750 mg PO DAILY #5 tab 09/06/20 Rx Zolpidem Tartrate [Ambien] 5 mg PO HSPRN PRN #10 tab 09/06/20 Rx glyBURIDE [Diabeta] 5 mg PO QAM-WM #30 tab 09/06/20 Rx traMADol HCl [Ultram] 50 mg PO Q6H PRN #15 tab 09/06/20 Rx Allergies: No Known Allergies Allergy (Verified 08/02/20 20:48) - Discharge Instructions Discharge Instructions:: Check your blood sugars 3 times a day and shows readings to your primary care provider. Activity:: Activity as Tolerated Nourishment:: Diabetic Diet, Heart Healthy Diet - Follow up Plan Referrals: [facility] [Outside] Estevan Mclain MD [Active] - 3 Days Jason Kate MD [Active] - Disposition: HOME Quality - Care Measures CORE MEASURES:: N/A
== END 2020-09-07 12:32 | disposition home or self-care (01) | DRG 177 ==
LOC: T4-A 01:19
PROVIDERS: ADMIT Student in an Organized Health Care Education/Training Program; ATTEND Internal Medicine
PROC: 8E0ZXY6 Isolation (ICD-10-PCS; principal; 2020-09-02)
DX: U07.1 COVID-19 (principal); J12.82 Pneumonia due to coronavirus disease 2019; J96.01 Acute respiratory failure with hypoxia; I26.99 Other pulmonary embolism without acute cor pulmonale; I48.92 Unspecified atrial flutter; E87.1 Hypo-osmolality and hyponatremia; I82.409 Acute embolism and thrombosis of unspecified deep veins of unspecified lower extremity; E11.9 Type 2 diabetes mellitus without complications; J41.1 Mucopurulent chronic bronchitis; G47.00 Insomnia, unspecified; Z96.659 Presence of unspecified artificial knee joint; Z87.891 Personal history of nicotine dependence; Z79.01 Long term (current) use of anticoagulants; Z79.899 Other long term (current) drug therapy; Z79.84 Long term (current) use of oral hypoglycemic drugs
CPT/HCPCS: 0240U; 36415; 36416; 71045; 71275; 80048; 80053; 81003; 81015; 82010; 82550; 82805; 83605; 83690; 83880; 84484; 85025; 85060; 85379; 87040; 93005; J0692; J1100; J1650; J1815; J1956; J2270; J3370

== ENCOUNTER 2020-10-14 12:54 | Outpatient (CLI) | payer BC ==
--- NOTE | 2020-10-14 13:27 | RAD ---
EXAM: Chest PA and lateral: HISTORY: Dyspnea. COMPARISON: 09/01/2020 FINDINGS: Heart: Normal cardiac silhouette Aorta: Unremarkable Pulmonary vessels: Normal Costophrenic angles: Costophrenic angles are clear. Lungs: Stable fibrotic changes in the lung parenchyma. Pneumothorax: No pneumothorax Osseous structures: No osseous abnormalities IMPRESSION: Stable fibrosis of the lung parenchyma.
== END 2020-10-14 12:55 | disposition home or self-care (01) ==
LOC: BICRAD 12:54
PROVIDERS: ATTEND Internal Medicine Critical Care Medicine
DX: R06.00 Dyspnea, unspecified (principal); J84.10 Pulmonary fibrosis, unspecified
CPT/HCPCS: 71046

== ENCOUNTER 2020-11-14 12:24 | Emergency (ER) | payer BC ==
[2020-11-14] MEDS ORDERED: HYDROcodone/Acetaminophen 5/325 mg Tablet ONE (14:32)
== END 2020-11-14 15:55 | disposition home or self-care (01) ==
LOC: ERS 12:24
DX: S30.0XXA Contusion of lower back and pelvis, initial encounter (principal); M79.651 Pain in right thigh; E11.9 Type 2 diabetes mellitus without complications; Z87.891 Personal history of nicotine dependence; Z86.16 Personal history of COVID-19; Z79.82 Long term (current) use of aspirin; Z79.01 Long term (current) use of anticoagulants; W19.XXXA Unspecified fall, initial encounter
CPT/HCPCS: 72192; 93005

== ENCOUNTER 2021-02-23 10:08 | Outpatient (CLI) | payer BC | END 2021-02-23 10:09 | disposition home or self-care (01) | LOC: BICRAD 10:08 | PROVIDERS: ATTEND Internal Medicine Critical Care Medicine | DX: R06.00 Dyspnea, unspecified (principal); J84.10 Pulmonary fibrosis, unspecified | CPT/HCPCS: 71046 ==

== ENCOUNTER 2022-04-26 10:55 | Outpatient (CLI) | payer BC | END 2022-04-26 10:56 | disposition home or self-care (01) | LOC: RAD 10:55 | PROVIDERS: ATTEND Internal Medicine Critical Care Medicine | DX: R06.00 Dyspnea, unspecified (principal); J98.4 Other disorders of lung | CPT/HCPCS: 71046 ==